=== PATIENT | female | born 1980 | race Caucasian/White ===

== ENCOUNTER 2017-11-13 14:43 | Emergency (ER) | payer OTHER, SELFPAY ==
[2017-11-13] MEDS ORDERED: Morphine 2 MG/ML SYRINGE ONE (15:53)
--- NOTE | 2017-11-13 16:04 | RAD ---
LEFT ANKLE 3 VIEWS: History Trauma, left ankle pain. FINDINGS/IMPRESSION: There is a fracture involving the medial malleolus without significant displacement. The ankle morti se is maintained. POS: [facility]
--- NOTE | 2017-11-13 16:09 | RAD ---
LEFT FOOT THREE VIEWS: History: 37-year-old female with history of left foot injury following trauma. FINDINGS: Irregular essentially nondisplaced fracture of the medial malleolus. No evidence for fracture involvi ng the foot proper. IMPRESSION: Irregular medial malleolar fracture. POS: C
== END 2017-11-13 15:55 | disposition home or self-care (01) ==
LOC: ERS 14:43
DX: S82.55XA Nondisplaced fracture of medial malleolus of left tibia, initial encounter for closed fracture (principal); S70.312A Abrasion, left thigh, initial encounter; F41.9 Anxiety disorder, unspecified; W20.8XXA Other cause of strike by thrown, projected or falling object, initial encounter
CPT/HCPCS: 27760; 96374; J2270

== ENCOUNTER 2023-04-02 08:28 | Outpatient (CLI) | payer OTHER ==
[2023-04-02] MEDS ORDERED: Iopamidol 370 76% 100 ML VIAL ONE (09:02)
== END 2023-04-02 08:29 | disposition home or self-care (01) ==
LOC: CT 08:28
PROVIDERS: ATTEND Radiology Radiation Oncology
DX: C69.92 Malignant neoplasm of unspecified site of left eye (principal); E04.2 Nontoxic multinodular goiter; N83.8 Other noninflammatory disorders of ovary, fallopian tube and broad ligament
CPT/HCPCS: 70491; 71260; 74177; 76536; Q9967

== ENCOUNTER 2023-04-11 09:53 | Outpatient (CLI) | payer OTHER | END 2023-04-11 09:54 | disposition home or self-care (01) | LOC: BICMAMMO 09:53 | PROVIDERS: ATTEND Nurse Practitioner Family | DX: Z12.31 Encounter for screening mammogram for malignant neoplasm of breast (principal); Z91.89 Other specified personal risk factors, not elsewhere classified; Z85.820 Personal history of malignant melanoma of skin | CPT/HCPCS: 77063; 77067 ==